=== PATIENT | male | born 1975 | race Caucasian/White ===

== ENCOUNTER → 2019-10-03 | Outpatient (CLI) | payer MEDICARE ==
[~2019-10-03] MED LIST: ASPI81TA85 PO; BENZ-52 PO; BENZ0.5T23 PO; LATU1TAB PO; LATU40TA PO; LISI10TA4 PO; METO1TAB7 PO; MIDAZOLAM INJ 2 MG/2 ML VIAL (J2250) As Ordered ONE; PANT20TA2 PO; PANT40TA3 PO; fentaNYL 100 MCG/2 ML INJECTION (J3010) As Ordered ONE
--- NOTE | 2019-10-03 13:58 | REP ---
MRI CERVICAL SPINE WITHOUT CONTRAST: HISTORY: Numbness in the right hand and the back of the head. TECHNIQUE: Sagittal and axial T1- and T2-weighted scans are acquired in the usual fashion with and without fat saturation. Sequences include spin echo, turbo spin-echo, and STIR imaging sequences. MRI FINDINGS: Cortical and medullary bone signal intensity are normal. Vertebral body heights are preserved alignment is normal. Cervical cord is normal in coarse, caliber, and signal intensity on T1- and T2-weighted scans. No extra vertebral abnormality is appreciated. Incidental note is made at the bottom of the imaging field of view of small left posterior focal disc protrusion at the T3-T4 and to a small right posterior focal disc protrusion at T2-T3 in the upper thoracic spine. Axial and sagittal images at the C2-C3 level demonstrate minimal central disc bulging. No other finding. At C3-C4, there is mild left-sided uncovertebral spurring. This produces mild left-sided neural foraminal narrowing. At C4-C5, there is facet hypertrophy bilaterally, right greater than left. No spinal stenosis or focal disc protrusion is seen. At C5-C6 there is mild degenerative narrowing of the disc and diffuse disc bulging is seen in its posterior margin. Mild facet hypertrophy is present bilaterally. There are mild uncovertebral spurs present bilaterally as well. At C6-C7, there is a right posterior disc bulge with osteophytic ridging and uncovertebral spurring producing right-sided neural foraminal narrowing at C6-7 moderate in degree. At C7-T1, there is no significant finding. IMPRESSION: Degenerative spondylosis changes. The dominant abnormality is on the right at C6 where there is significant neural foraminal narrowing from discogenic spurring associated with disc bulging. There is mild bilateral uncovertebral spurring at C5-C6. There is left-sided uncovertebral spurring at C3-C4. Incidental findings include small disc protrusions at T2-T3 and T3-T4 in the upper thoracic spine. Electronically Signed by Jeb Amato MD 10/03/2019 02:21 P
== END ==
LOC: M RAD 09:06
PROVIDERS: ATTEND Registered Nurse
DX: M50.322 Other cervical disc degeneration at C5-C6 level (principal); M25.78 Osteophyte, vertebrae; R20.0 Anesthesia of skin

== ENCOUNTER → 2019-10-03 | Outpatient (CLI) | payer MEDICARE ==
[~2019-10-03] MED LIST changes: -MIDAZOLAM INJ 2 MG/2 ML VIAL (J2250) As Ordered ONE; -fentaNYL 100 MCG/2 ML INJECTION (J3010) As Ordered ONE
[2019-10-03 12:40] VITALS: BP 141/90
--- NOTE | 2019-10-03 12:53 | REP ---
MRI brain without contrast: History: Altered mental status. Memory loss. Numbness in the back of the head and right arm. Syncope and collapse. . Comparison study: No comparison brain imaging. Technique: Axial and sagittal imaging planes are utilized for T1 and T2-weighted scans. Sequences include spin-echo, fast spin echo, FLAIR, and diffusion weighted sequences. MRI findings: No bony calvarial lesion is seen. Craniocervical junction and upper cervical cord are normal in appearance. There is no MR evidence of significant paranasal sinus disease. No intraorbital abnormality is seen. The lateral, third, and fourth ventricles are normal in size and position. Schaefer-white differentiation pattern is intact above and below the tentorium. There is no evidence of intracranial hemorrhage. No mass, infarction, extra-axial fluid collection or midline shift is seen. No abnormal white matter lesion is seen. Impression: Negative noncontrast brain MRI study. Electronically Signed by Jeb Amato MD 10/03/2019 12:45 P
== END ==
LOC: M RAD 08:59
PROVIDERS: ATTEND Psychiatry & Neurology Neurology
DX: R41.82 Altered mental status, unspecified (principal); R55 Syncope and collapse; M50.322 Other cervical disc degeneration at C5-C6 level; M25.78 Osteophyte, vertebrae; R20.0 Anesthesia of skin
CPT/HCPCS: 70551; 72141; J2250; J3010